=== PATIENT | male | born 1980 | race African-American/Black ===

== ENCOUNTER 2022-06-14 07:02 | Emergency (ER) | payer MEDICAID ==
[~2022-06-14] VITALS: Ht 180.3 cm; Wt 118.8 kg
[2022-06-14] MEDS ORDERED: IBUPROFEN 400MG TABLET PO ONE (10:00)
[2022-06-14 11:30] VITALS: BP 154/90
== END 2022-06-14 11:31 | disposition home or self-care (01) ==
LOC: ER 07:15
DX: S69.91XA Unspecified injury of right wrist, hand and finger(s), initial encounter (principal); G89.11 Acute pain due to trauma; V89.2XXA Person injured in unspecified motor-vehicle accident, traffic, initial encounter; Y93.89 Activity, other specified; Y92.89 Other specified places as the place of occurrence of the external cause; Y99.8 Other external cause status
CPT/HCPCS: 29125; 73110; 99283